=== PATIENT | male | born 1970 | race Caucasian/White ===

== ENCOUNTER → 2017-10-05 16:11 | Outpatient (CLI) | payer OTHER, SELFPAY ==
[2017-10-05 19:21] LABS: Amphetamine/Metha Screen,Urine Negative ng/mL (<1000); Barbiturates Screen,Urine Negative ng/mL (<200); Benzodiazepines Screen,Urine Positive ng/mL (200); Cannabinoid Screen,Urine Negative ng/mL (<50); Cocaine Screen,Urine Negative ng/g (<300); Methadone Screen,Urine Negative ng/mL (<300); Opiate Screen,Urine Negative ng/mL (<300); Phencyclidine Screen,Urine Negative ng/mL (<25)
== END ==
PROVIDERS: Visit Provider Emergency Medicine
DX: Z79.899 Other long term (current) drug therapy (principal)
CPT/HCPCS: 80305

== ENCOUNTER → 2017-11-27 12:25 | Outpatient (CLI) | payer OTHER, SELFPAY ==
[2017-11-27 15:02] LABS: Alanine Aminotransferase 24 U/L (12-78); Albumin Level 4.2 gm/dL (3.4-5.0); Alkaline Phosphatase 108 U/L (46-116); Anion Gap 9.6 mEq/L (5-15); Aspartate Amino Transferase 22 U/L (15-37); Bilirubin,Direct 0.2 mg/dL (0.0-0.2); Bilirubin,Total 0.8 mg/dL (0.2-1.0); Blood Urea Nitrogen 13 mg/dL (7-18); Carbon Dioxide 34 mmol/L (21.0-32.0); Chloride 104 mmol/L (98-107); Chol/HDL Ratio 3.2 (1-3.5); Cholesterol 135 mg/dL (140-200); Creatinine,Serum 0.94 mg/dL (0.70-1.30); Estimated Glomerular Filt Rate 86 ml/min (>60); GFR (African American) 104 ML/MIN (>60); Glucose 91 mg/dL (74-106); HDL Cholesterol 42 mg/dL (27-67); LDL Cholesterol 74 mg/dL (0-130); Potassium 4.6 mmoL/L (3.5-5.1); Sodium 143 mmol/L (136-145); Total Protein,Serum 7.6 gm/dL (6.4-8.2); Triglycerides 97 mg/dL (30-200); VLDL Cholesterol 19 mg/dL (0-40)
== END ==
PROVIDERS: Visit Provider Internal Medicine
DX: E78.5 Hyperlipidemia, unspecified (principal); I25.10 Atherosclerotic heart disease of native coronary artery without angina pectoris
CPT/HCPCS: 36415; 80048; 80061; 80076

== ENCOUNTER → 2017-12-31 13:10 | Outpatient (REF) | payer OTHER, SELFPAY ==
[2017-12-31 19:35] LABS: Amphetamine/Metha Screen,Urine Negative ng/mL (<1000); Barbiturates Screen,Urine Negative ng/mL (<200); Benzodiazepines Screen,Urine Positive ng/mL (200); Cannabinoid Screen,Urine Negative ng/mL (<50); Cocaine Screen,Urine Negative ng/g (<300); Methadone Screen,Urine Negative ng/mL (<300); Opiate Screen,Urine Negative ng/mL (<300); Phencyclidine Screen,Urine Negative ng/mL (<25)
== END ==
LOC: LAB 13:10
PROVIDERS: Visit Provider Emergency Medicine
DX: Z79.891 Long term (current) use of opiate analgesic (principal)
CPT/HCPCS: 80305

== ENCOUNTER → 2018-03-29 14:39 | Outpatient (REF) | payer OTHER, SELFPAY ==
[2018-03-29 18:50] LABS: Amphetamine/Metha Screen,Urine Negative ng/mL (<1000); Barbiturates Screen,Urine Negative ng/mL (<200); Benzodiazepines Screen,Urine Positive ng/mL (<200); Cannabinoid Screen,Urine Negative ng/mL (<50); Cocaine Screen,Urine Negative ng/mL (<300); Methadone Screen,Urine Negative ng/mL (<300); Opiate Screen,Urine Negative ng/mL (<300); Phencyclidine Screen,Urine Negative ng/mL (<25)
== END ==
LOC: LAB 14:39
PROVIDERS: Visit Provider Emergency Medicine
DX: Z79.899 Other long term (current) drug therapy (principal)
CPT/HCPCS: 80305

== ENCOUNTER → 2018-06-27 19:12 | Outpatient (CLI) | payer OTHER, SELFPAY ==
[2018-06-27 19:50] LABS: Amphetamine/Metha Screen,Urine Negative ng/mL (<1000); Barbiturates Screen,Urine Negative ng/mL (<200); Benzodiazepines Screen,Urine Positive ng/mL (<200); Cannabinoid Screen,Urine Negative ng/mL (<50); Cocaine Screen,Urine Negative ng/mL (<300); Methadone Screen,Urine Negative ng/mL (<300); Opiate Screen,Urine Negative ng/mL (<300); Phencyclidine Screen,Urine Negative ng/mL (<25)
== END ==
LOC: LAB 19:12 → LAB.DROPOF 06-28 09:04
PROVIDERS: PCP Emergency Medicine; Visit Provider Emergency Medicine
DX: Z79.899 Other long term (current) drug therapy (principal)
CPT/HCPCS: 80305

== ENCOUNTER → 2018-09-25 18:16 | Outpatient (CLI) | payer OTHER, SELFPAY ==
[2018-09-25 19:33] LABS: Amphetamine/Metha Screen,Urine Negative ng/mL (<1000); Barbiturates Screen,Urine Negative ng/mL (<200); Benzodiazepines Screen,Urine Positive ng/mL (<200); Cannabinoid Screen,Urine Negative ng/mL (<50); Cocaine Screen,Urine Negative ng/mL (<300); Methadone Screen,Urine Negative ng/mL (<300); Opiate Screen,Urine Negative ng/mL (<300); Phencyclidine Screen,Urine Negative ng/mL (<25)
== END ==
PROVIDERS: Visit Provider Emergency Medicine
DX: Z79.899 Other long term (current) drug therapy (principal)
CPT/HCPCS: 80305

== ENCOUNTER → 2018-12-20 14:00 | Outpatient (CLI) | payer OTHER, SELFPAY ==
[2018-12-20 15:13] LABS: Amphetamine/Metha Screen,Urine Negative ng/mL (<1000); Barbiturates Screen,Urine Negative ng/mL (<200); Benzodiazepines Screen,Urine Positive ng/mL (<200); Cannabinoid Screen,Urine Negative ng/mL (<50); Cocaine Screen,Urine Negative ng/mL (<300); Methadone Screen,Urine Negative ng/mL (<300); Opiate Screen,Urine Negative ng/mL (<300); Phencyclidine Screen,Urine Negative ng/mL (<25)
== END ==
PROVIDERS: Visit Provider Emergency Medicine
DX: Z79.899 Other long term (current) drug therapy (principal)
CPT/HCPCS: 80305

== ENCOUNTER → 2019-03-21 13:51 | Outpatient (CLI) | payer OTHER, SELFPAY ==
[2019-03-21 16:36] LABS: Amphetamine/Metha Screen,Urine Negative ng/mL (<1000); Barbiturates Screen,Urine Negative ng/mL (<200); Benzodiazepines Screen,Urine Positive ng/mL (<200); Cannabinoid Screen,Urine Negative ng/mL (<50); Cocaine Screen,Urine Negative ng/mL (<300); Methadone Screen,Urine Negative ng/mL (<300); Opiate Screen,Urine Negative ng/mL (<300); Phencyclidine Screen,Urine Negative ng/mL (<25)
== END ==
PROVIDERS: Visit Provider Emergency Medicine
DX: Z79.899 Other long term (current) drug therapy (principal)
CPT/HCPCS: 80305

== ENCOUNTER → 2019-11-11 09:32 | Outpatient (CLI) | payer OTHER, SELFPAY ==
[2019-11-11 10:13] LABS: Alanine Aminotransferase 19 U/L (12-78); Albumin Level 4.3 g/dl (3.5-5.0); Alkaline Phosphatase 84 U/L (38-126); Aspartate Amino Transferase 35 U/L (17-59); Bilirubin,Indirect 0.7 mg/dL (0.0-0.9); Bilirubin,Total 0.7 mg/dl (0.2-1.3); Bilirubin,Unconjugated 0.8 mg/dL (0.0-1.1); Chol/HDL Ratio 4.5 (1-3.5); Cholesterol 148 mg/dl (140-200); HDL Cholesterol 33 mg/dl (40-60); Total Protein,Serum 7.2 g/dl (6.3-8.2); Triglycerides 154 mg/dl (30-150); VLDL Cholesterol 31 mg/dL (0-40)
== END ==
PROVIDERS: Urology; Visit Provider Internal Medicine
DX: E78.49 Other hyperlipidemia (principal); I11.9 Hypertensive heart disease without heart failure; I25.10 Atherosclerotic heart disease of native coronary artery without angina pectoris; Z87.891 Personal history of nicotine dependence
CPT/HCPCS: 36415; 80061; 80076

== ENCOUNTER 2020-06-14 14:36 | Emergency (ER) | payer OTHER, SELFPAY ==
--- NOTE | 2020-06-14 14:32 | ECG_ITS ---
APPROVED REPORT Exam: Resting ECG HR:74 bpm ECG Measurements Heart Rate 74 AXES NC 130 P 59 QRSd 90 QRS 74 QT 374 T 48 QTc 415 Conclusion Normal sinus rhythm Normal ECG Electronically signed by : Melvin Pinedo, 06/18/2020 11:31:10
[2020-06-14 14:36] VITALS: BP 126/75; PULSE 80; RESP 17; TEMP 36.7; O2SAT 97; BMI 28.3
--- NOTE | 2020-06-14 14:39 | XR_ITS ---
PROCEDURE: XR CHEST 2V CLINICAL HISTORY: cp Chest pain COMPARISON: CR CXR1 CHEST-PORTABLE from 01/01/2013 CR CXR1 CHEST-PORTABLE from 01/07/2017 FINDINGS: There has been a prior CABG. Normal heart size. The lungs are clear without infiltrates, suspicious nodules, or pleural effusions. No acute bony abnormalities. IMPRESSION: No acute findings. Dictated by: Darinel Estevez MD 06/14/2020 15:01 Darinel Estevez MD in [place] 06/14/2020 15:01
[2020-06-14 14:41] VITALS: BP 126/75; PULSE 72; O2SAT 97
--- NOTE | 2020-06-14 14:45 | HMH.EDCP ---
ED Disposition Clinical Impression: Non-cardiac chest pain Disposition: Home, Self-Care Condition on Discharge: Good Additional Instructions: You were seen on an emergency basis. It is very important that you follow up with your primary care provider and/or specialist as we discussed within 2 days. All labs and imaging were obtained and interpreted here to rule out life threatening emergencies, but your final results should be reviewed by your primary doctor at your follow up appointment. Please return to the emergency department if any of your symptoms worsen, or if they do not improve as we discussed. - Critical Care Critical Care Time: No Attestation: On , the high probability of a clinically significant, sudden or life threatening deterioration of the following system(s) required my full and direct attention, intervention and personal management. The time I documented below is in addition to time spent performing reported procedures but includes the following listed in this critical care notation. Medical Decision Making - Medical Records Medical records reviewed: Yes: I reviewed the patient's medical records. - Maxwell Inquiry Pt receiving controlled substance: No Vital Signs: 06/14/20 14:36 06/14/20 14:41 06/14/20 15:06 Temperature 98.1 F Temperature Source Oral Pulse Rate [Right] 80 72 66 Respiratory Rate 17 Blood Pressure [Right Arm] 126/75 126/75 107/58 L Blood Pressure Mean [Right Arm] 92 92 74 Blood Pressure Source [Right Arm] Automatic Cuff Automatic Cuff Blood Pressure Position [Right Arm] Sitting Sitting 02 Sat by Pulse Oximetry 97 97 95 Oxygen Delivery Method Room Air Room Air 06/14/20 15:55 06/14/20 17:04 Temperature Temperature Source Pulse Rate [Right] 68 64 Respiratory Rate Blood Pressure [Right Arm] 102/58 L 95/53 L Blood Pressure Mean [Right Arm] 72 67 Blood Pressure Source [Right Arm] Automatic Cuff Automatic Cuff Blood Pressure Position [Right Arm] Sitting Sitting 02 Sat by Pulse Oximetry 96 97 Oxygen Delivery Method Room Air Room Air - Lab Data Lab Results 06/14/20 10:26: Lipase 47 06/14/20 14:39: WBC 9.3, RBC 5.38, Hgb 16.8, Hct 49.7, MCV 92.5, MCH 31.2, MCHC 33.7, RDW 13.4, Plt Count 234, MPV 8.2, Neut % (Auto) 63.1, Lymph % (Auto) 27.0, Kings % (Auto) 6.5, Eos % (Auto) 2.5, Baso % (Auto) 0.9, Neut # (Auto) 5.9, Lymph # (Auto) 2.5, Kings # (Auto) 0.6, Eos # (Auto) 0.2, Baso # (Auto) 0.1 06/14/20 14:39: Sodium 137, Potassium 4.0, Chloride 96 L, Carbon Dioxide 33 H, Anion Gap 12.0, BUN 6 L, Creatinine 1.10, Estimated Creat Clear 82, Estimated GFR 71, Est GFR ( Amer) 85, Glucose 99, Calcium 9.7, Troponin I < 0.01 06/14/20 17:01: Troponin I < 0.01 Result diagrams: 06/14/20 14:39 06/14/20 14:39 Orders (Tests/Meds): ED MEDICATIONS Generic Name Dose Route Start Last Admin Trade Name Freq PRN Reason Stop Dose Admin Sodium Chloride 8 ml 06/14/20 14:40 Sodium Chloride 0.9% 10ml Vial IV 07/14/20 14:39 NEEDED PRN dilute pepcid Discontinued Medications Generic Name Dose Route Start Last Admin Trade Name Freq PRN Reason Stop Dose Admin Belladonna Alkaloids 60 ml 06/14/20 14:44 06/14/20 14:48 Gi Cocktail 60ml Udc PO 06/14/20 14:45 60 ml ONCE ONE Administration Famotidine 20 mg 06/14/20 14:40 06/14/20 14:48 Famotidine 20mg/2ml Vial IV 06/14/20 14:41 20 mg ONCE ONE Administration ORDERS Category Date Time Status Troponin I Q3H Lab 06/14/20 20:45 Ordered Medical Decision Narrative: 50-year-old male presenting with chest pain. Nontoxic, afebrile, hemodynamically stable, atraumatic, oxygenating well on room air. EKG nonischemic and without arrhythmia. Initial and repeat troponins are less than 0.1 and flat. CBC and CMP are nonactionable. Lipase is within normal limits. Chest x-ray is negative for acute disease. Patient asymptomatic after GI cocktail and Pepcid. This is likely gastritis with d
[2020-06-14 14:49] LABS: Basophils # 0.1 K/mm3 (0-0.2); Basophils % 0.9 % (0.1-2.0); Eosinophils # 0.2 K/mm3 (0.0-0.4); Eosinophils % 2.5 % (0.1-12.0); Hematocrit 49.7 % (42.0-52.0); Hemoglobin 16.8 g/dL (14.1-18.0); Lymphocytes # 2.5 K/mm3 (0.7-4.5); Mean Corpuscular HGB Conc 33.7 g/dL (31.8-35.4); Mean Corpuscular Hemoglobin 31.2 pg (27.0-31.2); Mean Corpuscular Volume 92.5 fl (80-94); Mean Platelet Volume 8.2 fl (7.4-10.4); Monocytes # 0.6 K/mm3 (0.1-1.0); Monocytes % 6.5 % (1.7-9.3); Neutrophils # 5.9 K/mm3 (1.8-7.8); Neutrophils % 63.1 % (37.0-80.0); Platelet Count 234 K/mm3 (142-424); Red Blood Count 5.38 M/mm3 (4.60-6.20); Red Cell Distribution Width 13.4 % (11.5-17.5); White Blood Count 9.3 K/mm3 (4.8-10.8)
[2020-06-14 14:51] LABS: Chloride 96 mmol/L (98-107); Sodium 137 mmol/L (136-145)
[2020-06-14 14:54] LABS: Blood Urea Nitrogen 6 mg/dl (9-20); Creatinine Clearance Estimated 82 mL/min (50-200); Estimated Glomerular Filt Rate 71 ml/min (>60); GFR (African American) 85 ML/MIN (>60)
[2020-06-14 14:55] LABS: Calcium 9.7 mg/dl (8.4-10.2); Carbon Dioxide 33 mmol/L (22.0-30.0); Glucose 99 mg/dl (74-100)
[2020-06-14 15:06] VITALS: BP 107/58; PULSE 66; O2SAT 95
[2020-06-14 15:08] LABS: Troponin I < 0.01 ng/ml (0.00-0.034)
[2020-06-14 15:55] VITALS: BP 102/58; PULSE 68; O2SAT 96
[2020-06-14 16:16] LABS: Lipase 47 U/L (23-300)
[2020-06-14 17:04] VITALS: BP 95/53; PULSE 64; O2SAT 97
[2020-06-14 17:45] LABS: Troponin I < 0.01 ng/ml (0.00-0.034)
[2020-06-14 17:57] VITALS: BP 142/85; PULSE 87; RESP 18; TEMP 36.8; O2SAT 99
== END 2020-06-14 17:58 | disposition home or self-care (01) ==
PROVIDERS: Emergency Provider Physician Assistant; PCP Emergency Medicine
DX: R07.9 Chest pain, unspecified (principal); F41.8 Other specified anxiety disorders; E78.5 Hyperlipidemia, unspecified; I10 Essential (primary) hypertension; I25.2 Old myocardial infarction; Z79.899 Other long term (current) drug therapy
CPT/HCPCS: 71046; 80048; 83690; 84484; 85025; 93005; 96374; 99283

== ENCOUNTER → 2020-06-15 14:22 | Outpatient (CLI) | payer OTHER, SELFPAY ==
[2020-06-15 15:30] VITALS: PULSE 62; PULSE 66
== END ==
PROVIDERS: PCP Emergency Medicine; Visit Provider Emergency Medicine
DX: R06.02 Shortness of breath (principal)
CPT/HCPCS: 94060; 94618; 94640; 94727; 94729

== ENCOUNTER → 2020-06-29 17:06 | Outpatient (CLI) | payer OTHER, SELFPAY ==
[2020-06-29 17:45] LABS: Basophils % 0.5 % (0.1-2.0); Eosinophils # 0.2 K/mm3 (0.0-0.4); Eosinophils % 2.7 % (0.1-12.0); Hematocrit 47.3 % (42.0-52.0); Hemoglobin 16.1 g/dL (14.1-18.0); Lymphocytes # 1.8 K/mm3 (0.7-4.5); Mean Corpuscular HGB Conc 34.1 g/dL (31.8-35.4); Mean Corpuscular Hemoglobin 31.1 pg (27.0-31.2); Mean Platelet Volume 7.9 fl (7.4-10.4); Monocytes # 0.4 K/mm3 (0.1-1.0); Monocytes % 5.5 % (1.7-9.3); Neutrophils # 5.2 K/mm3 (1.8-7.8); Neutrophils % 68.3 % (37.0-80.0); Platelet Count 223 K/mm3 (142-424); Red Cell Distribution Width 13.6 % (11.5-17.5); White Blood Count 7.7 K/mm3 (4.8-10.8)
[2020-06-29 17:59] LABS: Chloride 99 mmol/L (98-107); Sodium 137 mmol/L (136-145)
[2020-06-29 18:03] LABS: Blood Urea Nitrogen 7 mg/dl (9-20); Calcium 9.2 mg/dl (8.4-10.2); Carbon Dioxide 32 mmol/L (22.0-30.0); Estimated Glomerular Filt Rate 89 ml/min (>60); GFR (African American) 108 ML/MIN (>60); Glucose 91 mg/dl (74-100)
[2020-06-29 18:29] LABS: Coronavirus 19 IgG Antibody Positive (Negative); Coronavirus 19 IgM Antibody Negative (Negative)
== END ==
PROVIDERS: PCP Emergency Medicine; Visit Provider Internal Medicine
DX: Z01.810 Encounter for preprocedural cardiovascular examination (principal)
CPT/HCPCS: 36415; 80048; 85025; 86328

== ENCOUNTER 2020-06-30 08:23 | Day surgery (SDC) | payer OTHER, SELFPAY ==
[2020-06-30] VITALS (16 sets, daily range): BP systolic 94–128; BP diastolic 53–67; PULSE 41–56; RESP 14–18; TEMP 36.4; O2SAT 91–100; BMI 27.6
--- NOTE | 2020-06-30 07:14 | IR_ITS ---
APPROVED REPORT Patient Location: Outpatient [facility] Graph[employer] Designer: GUS Lara RT (R) PROCEDURES Left heart catheterization Left ventriculogram Selective coronary angiogram Selective engagement of the saphenous vein graft to the circumflex artery FFR to the left main artery and LAD system Drug-eluting stent deployment to the left main artery, proximal LAD, and mid LAD INDICATION Angina pectoris, Coronary artery disease, History of coronary bypass surgery, Ischemic response to adenosine Informed consent was obtained prior to the procedure. COMPLICATIONS none Estimated Blood Loss: less than 10 mls TECHNIQUE 1% lidocaine used anesthetize the right groin the right femoral artery was accessed via the Salinger technique and a 5 Persian sheath was placed in the right femoral artery. A JL4 JR4 catheter were used to perform left heart catheterization left ventriculogram selective coronary geography as well as engagement of the saphenous vein graft to the circumflex artery. Following this a 6 Persian sheath was exchanged for the 5 Persian sheath. Therapeutic heparin was administered giving a therapeutic ACT. And AL 0.75 guide catheter AL 2 and eventually an AR 2 catheter were used for the diagnostic procedure. Specifically the AR-2 catheter was used to cannulate the saphenous vein graft to the circumflex artery which had an anterior takeoff. Following angiography of this vein graft the guide catheter was placed in the ascending aorta and aortic cusp and an FFR wire was normalized. The wire was then placed into the LAD and FFR was performed which produced an index of 0.66. Following this a 3.5 x 38 mm resolute barb stent was placed in the left main artery extending into the LAD and deployed at 20 paty. An additional 3 mm x 18 mm resolute barb stent was then placed distal to the stent and deployed at 20 paty. The balloon was brought back and deployed at 22 paty between the 2 stents. A 4 mm x 12 mm noncompliant balloon was then placed in the left main artery LAD 80 proximal LAD and deployed at 20,22 and 24 paty up and down the vessel. After achieving excellent angiographic results 600 mcg of intracoronary nitroglycerin was administered. PEGGY-3 flow was present before and after the procedure. The apparatus was removed the groin was reprepped closure changed sheath was removed good hemostasis was achieved using Perclose device patient was transferred to the postop holding area in stable condition ANGIOGRAPHIC RESULTS The left main artery Has a distal 50% stenosis which extends into the proximal LAD which has a 50 to 60% concentric stenosis. Distal to the stent in the mid LAD the remaining vessel is widely patent. 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 This vein graft has an anterior takeoff and was cannulated past using the AR-2 guide catheter IMPRESSION Coronary artery disease as described above Successful stenting of the left main artery proximal and mid LAD as described above reducing the stenosis to less than 10% Patent saphenous vein graft to circumflex artery which is best cannulated using an AR-2 catheter due to its anterior takeoff Normal ejection fraction Known occluded left internal mammary artery Normal left ventricular end-diastolic pressure PLAN 1. Dual antiplatelet therapy 2. Avoidance of tobacco prod
[2020-06-30 13:17] LABS: CATHL Activated Clotting Time 306 SEC (74-125)
[2020-06-30 13:19] LABS: CATHL Activated Clotting Time > 400 SEC (74-125)
--- NOTE | 2020-07-01 13:33 | HMH.PHACLD ---
Soren Coles has received discharge medication counseling on the following medications: CONTINUED MEDICATIONS: ASPIRIN, PLAVIX, SIMVASTATIN, BISOPROLOL, LISINOPRIL-HCTZ
== END 2020-06-30 14:06 | disposition home or self-care (01) ==
LOC: CATHLAB 08:24
PROVIDERS: PCP Emergency Medicine; Visit Provider Internal Medicine
DX: I25.118 Atherosclerotic heart disease of native coronary artery with other forms of angina pectoris (principal); E78.2 Mixed hyperlipidemia; I25.729 Atherosclerosis of autologous artery coronary artery bypass graft(s) with unspecified angina pectoris; I11.9 Hypertensive heart disease without heart failure; Z95.1 Presence of aortocoronary bypass graft; Z95.5 Presence of coronary angioplasty implant and graft; I25.2 Old myocardial infarction; Z79.01 Long term (current) use of anticoagulants; Z79.51 Long term (current) use of inhaled steroids; Z79.82 Long term (current) use of aspirin; Z79.899 Other long term (current) drug therapy; Z72.0 Tobacco use
CPT/HCPCS: 85347; 92928; 93458; 93571; 93572; 99152; 99153; C1725; C1760; C1769; C1876; C1894; C9600; J1644; Q9967

== ENCOUNTER → 2020-12-24 17:03 | Outpatient (CLI) | payer OTHER, SELFPAY ==
[2020-12-24 17:35] LABS: Amphetamine/Metha Screen,Urine Negative ng/ml (<1000); Benzodiazepines Screen,Urine Positive ng/ml (<200)
[2020-12-24 17:36] LABS: Barbiturates Screen,Urine Negative ng/ml (<200)
[2020-12-24 17:37] LABS: Cannabinoid Screen,Urine Negative ng/ml (<50); Cocaine Screen,Urine Negative ng/ml (<300)
[2020-12-24 17:39] LABS: Opiate Screen,Urine Negative ng/ml (<300)
[2020-12-24 17:40] LABS: Phencyclidine Screen,Urine Negative ng/ml (<25)
[2020-12-24 17:42] LABS: Methadone Screen,Urine Negative ng/ml (<300)
== END ==
PROVIDERS: Visit Provider Emergency Medicine
DX: F41.9 Anxiety disorder, unspecified (principal)
CPT/HCPCS: 80305

== ENCOUNTER → 2021-03-23 17:39 | Outpatient (CLI) | payer OTHER, SELFPAY ==
[2021-03-23 19:51] LABS: Amphetamine/Metha Screen,Urine Negative ng/ml (<1000)
[2021-03-23 19:56] LABS: Barbiturates Screen,Urine Negative ng/ml (<200); Benzodiazepines Screen,Urine Positive ng/ml (<200)
[2021-03-23 19:57] LABS: Cannabinoid Screen,Urine Negative ng/ml (<50)
[2021-03-23 19:58] LABS: Cocaine Screen,Urine Negative ng/ml (<300); Methadone Screen,Urine Negative ng/ml (<300)
[2021-03-23 19:59] LABS: Opiate Screen,Urine Negative ng/ml (<300); Phencyclidine Screen,Urine Negative ng/ml (<25)
== END ==
PROVIDERS: Visit Provider Emergency Medicine
DX: Z79.899 Other long term (current) drug therapy (principal)
CPT/HCPCS: 80305

== ENCOUNTER → 2021-06-24 15:01 | Outpatient (CLI) | payer OTHER, SELFPAY ==
[2021-06-24 16:11] LABS: Barbiturates Screen,Urine Negative ng/ml (<200); Benzodiazepines Screen,Urine Positive ng/ml (<200)
[2021-06-24 16:12] LABS: Amphetamine/Metha Screen,Urine Negative ng/ml (<1000); Methadone Screen,Urine Negative ng/ml (<300)
[2021-06-24 16:13] LABS: Cannabinoid Screen,Urine Negative ng/ml (<50)
[2021-06-24 16:14] LABS: Cocaine Screen,Urine Negative ng/ml (<300); Opiate Screen,Urine Negative ng/ml (<300)
[2021-06-24 16:15] LABS: Phencyclidine Screen,Urine Negative ng/ml (<25)
== END ==
PROVIDERS: Visit Provider Emergency Medicine
DX: Z79.899 Other long term (current) drug therapy (principal)
CPT/HCPCS: 80305

== ENCOUNTER → 2021-09-16 13:05 | Outpatient (CLI) | payer OTHER, SELFPAY ==
[2021-09-16 14:35] LABS: Amphetamine/Metha Screen,Urine Negative ng/ml (<1000); Barbiturates Screen,Urine Negative ng/ml (<200)
[2021-09-16 14:36] LABS: Benzodiazepines Screen,Urine Positive ng/ml (<200)
[2021-09-16 14:37] LABS: Cannabinoid Screen,Urine Negative ng/ml (<50); Cocaine Screen,Urine Negative ng/ml (<300)
[2021-09-16 14:38] LABS: Methadone Screen,Urine Negative ng/ml (<300); Opiate Screen,Urine Negative ng/ml (<300)
[2021-09-16 14:39] LABS: Phencyclidine Screen,Urine Negative ng/ml (<25)
== END ==
PROVIDERS: Visit Provider Emergency Medicine
DX: Z79.899 Other long term (current) drug therapy (principal)
CPT/HCPCS: 80305

== ENCOUNTER → 2021-09-30 13:24 | Outpatient (CLI) | payer OTHER, SELFPAY ==
--- NOTE | 2021-09-30 13:30 | MR_ITS ---
FINAL REPORT CLINICAL HISTORY: neck pain XYRS. FINDINGS: Multiplanar MR imaging of the cervical spine was performed without contrast. Motion on many of the images decreases exam sensitivity. On the sagittal T2-weighted images, disc degeneration is seen throughout. There is no evidence of fracture. The vertebral alignment is normal. The cervical spinal cord has an unremarkable appearance without evidence of mass, edema or syrinx. The cervicomedullary junction is normal. C2-3: A left paracentral disc protrusion mildly indents the thecal sac. There is mild left neural foraminal narrowing. C3-4: There are uncovertebral osteophytes. There is moderate right and severe left neural foraminal narrowing. C4-5: There is a disc osteophyte complex. There is moderate bilateral neural foraminal narrowing. There is mild central canal stenosis with an AP thecal sac diameter of 8 mm. C5-6: There is a disc osteophyte complex. There is moderate bilateral neural foraminal narrowing. There is mild central canal stenosis with an AP thecal sac diameter of 9 mm. C6-7: There is an annular bulge with a small central disc protrusion. There is mild bilateral neural foraminal narrowing. C7-T1: There are uncovertebral osteophytes. There is no significant canal stenosis or neural foraminal narrowing. IMPRESSION: Multilevel degenerative disc disease with areas of neural foraminal narrowing and central canal stenosis. Left paracentral disc protrusion at C2-C3 mildly indents the thecal sac. Small central disc protrusion at C6-7. Reviewed, Interpreted and Dictated by Matthias Irwin III, MD Transcribed by Sonny Lechuga Authenticated by Matthias Irwin III, MD on 09/30/2021 04:52:56 PM [facility]
--- NOTE | 2021-09-30 13:30 | MR_ITS ---
PROCEDURE INFORMATION: Exam: MR Lumbar Spine Without Contrast Exam date and time: 09/30/2021 1:30 PM Age: 51 years old Clinical indication: Low back pain TECHNIQUE: Imaging protocol: Multiplanar magnetic resonance images of the lumbar spine without intravenous contrast. COMPARISON: No relevant prior studies available. FINDINGS: Vertebrae: Unremarkable. Spinal cord: Normal signal. No cord compression. L1-L2: No significant disc disease. No significant spinal canal stenosis. No neural foraminal stenosis. L2-L3: No significant disc disease. No significant spinal canal stenosis. No neural foraminal stenosis. L3-L4: Mild left paracentral disc bulging resulting in contact upon the exiting left-sided nerve root. L4-L5: Disc desiccation. No significant disc disease. No significant spinal canal stenosis. No neural foraminal stenosis. L5-S1: Disc desiccation. No significant disc disease. No significant spinal canal stenosis. No neural foraminal stenosis. Soft tissues: Unremarkable. IMPRESSION: No disc herniation. No free fragment. Mild degenerative changes at L3-L4.
--- NOTE | 2021-09-30 13:37 | XR_ITS ---
FINAL REPORT CLINICAL HISTORY: R/O FOREIGN BODY FOR MRI. prior hx metal in lt eye. patient is waiting for clearance for their mri. FINDINGS: ORBITS Look up and looking down views of the skull were performed. No intraorbital foreign body is identified. No fracture is seen. IMPRESSION: No intra orbital foreign body. Reviewed, Interpreted and Dictated by Matthias Irwin III, MD Transcribed by Sonny Lechuga Authenticated by Matthias Irwin III, MD on 09/30/2021 02:06:54 PM [facility]
== END ==
PROVIDERS: PCP Emergency Medicine; Visit Provider Emergency Medicine
DX: M54.2 Cervicalgia (principal); M54.9 Dorsalgia, unspecified; H05.53 Retained (old) foreign body following penetrating wound of bilateral orbits
CPT/HCPCS: 70200; 72141; 72148; 76376

== ENCOUNTER 2021-10-17 15:55 | Emergency (ER) | payer OTHER, SELFPAY ==
--- NOTE | 2021-10-17 | ECG_ITS ---
APPROVED REPORT Exam: Resting ECG HR:53 bpm ECG Measurements Heart Rate 53 AXES LA 139 P 69 QRSd 93 QRS 83 QT 410 T 48 QTc 393 Conclusion SINUS BRADYCARDIA BORDERLINE ECG UNCONFIRMED REPORT Electronically signed by : Huy Petersen MD 10/21/2021 16:12:23
[2021-10-17 15:55] VITALS: BP 114/70; PULSE 56; RESP 12; TEMP 36.5; O2SAT 100; BMI 23.6
--- NOTE | 2021-10-17 15:59 | XR_ITS ---
PROCEDURE INFORMATION: Exam: XR Chest Exam date and time: 10/17/2021 3:59 PM Age: 51 years old Clinical indication: Dyspnea; Additional info: Chest pain, dyspnea TECHNIQUE: Imaging protocol: XR of the chest. Views: 1 view. Portable AP upright exam 4:11 p.m. COMPARISON: CR XR CHEST 2V 06/14/2020 2:43 PM FINDINGS: Lungs: No acute pulmonary findings. No pulmonary consolidation. Lung volumes within normal limits. A chronic calcified lateral right basilar granuloma again noted. Pulmonary vessels do not appear congested. Pleural spaces: Unremarkable. No significant pleural effusion. No pneumothorax. Heart/Mediastinum: The cardiac silhouette is normal. Mediastinal surgical changes, post CABG. Overlying shelter monitor electrodes. Bones/joints: Sternotomy wires. Mild spinal degenerative changes. IMPRESSION: 1. No acute findings. 2. Non emergency and chronic findings, as above.
[2021-10-17 16:16] LABS: Basophils # 0.3 K/mm3 (0-0.2); Basophils % 5.4 % (0.1-2.0); Eosinophils # 0.2 K/mm3 (0.0-0.4); Eosinophils % 3.4 % (0.1-12.0); Hematocrit 45.9 % (42.0-52.0); Hemoglobin 15.9 g/dL (14.1-18.0); Lymphocytes # 1.7 K/mm3 (0.7-4.5); Lymphocytes % 30.3 % (10-50); Mean Corpuscular HGB Conc 34.7 g/dL (31.8-35.4); Mean Corpuscular Hemoglobin 32.3 pg (27.0-31.2); Mean Corpuscular Volume 93.1 fl (80-94); Monocytes # 0.6 K/mm3 (0.1-1.0); Monocytes % 10.1 % (1.7-9.3); Neutrophils # 3.2 K/mm3 (1.8-7.8); Neutrophils % 56.3 % (37.0-80.0); Platelet Count 190 K/mm3 (142-424); Red Blood Count 4.93 M/mm3 (4.60-6.20); Red Cell Distribution Width 14.1 % (11.5-17.5); White Blood Count 5.6 K/mm3 (4.8-10.8)
[2021-10-17 16:28] LABS: Alanine Aminotransferase 28 U/L (12-78); Albumin Level 4.5 g/dl (3.5-5.0); Albumin/Globulin Ratio 1.6 (1.1-1.8); Alkaline Phosphatase 72 U/L (38-126); Anion Gap 12.4 mEq/L (5-15); Aspartate Amino Transferase 52 U/L (17-59); Bilirubin,Total 1.6 mg/dl (0.2-1.3); Blood Urea Nitrogen 13 mg/dl (9-20); Calcium 8.8 mg/dl (8.4-10.2); Carbon Dioxide 30 mmol/L (22.0-30.0); Chloride 97 mmol/L (98-107); Creatinine Clearance Estimated 89 mL/min (50-200); Estimated Glomerular Filt Rate 78 ml/min (>60); GFR (African American) 95 ML/MIN (>60); Globulin 2.8 g/dL (1.3-3.2); Glucose 94 mg/dl (74-100); Potassium 4.4 mmoL/L (3.5-5.1); Sodium 135 mmol/L (136-145); Total Protein,Serum 7.3 g/dl (6.3-8.2)
[2021-10-17 16:30] VITALS: BP 102/55; PULSE 52; RESP 18; O2SAT 98
[2021-10-17 16:33] LABS: D-Dimer 0.89 ug/mL (0.0-0.5)
[2021-10-17 16:41] LABS: Troponin I < 0.01 ng/ml (0.00-0.034)
[2021-10-17 17:00] VITALS: BP 99/52; PULSE 52; RESP 18; O2SAT 99
[2021-10-17 17:30] VITALS: BP 95/57; PULSE 54; RESP 20; O2SAT 99
--- NOTE | 2021-10-17 17:56 | PC.NURSE ---
patient up to bathroom. No other needs at this time. Updated on POC
--- NOTE | 2021-10-17 19:22 | HMH.EDCP ---
ED Disposition Clinical Impression: Chest pain, Viral illness Disposition: Home, Self-Care Condition on Discharge: Good Instructions: DI for Atypical Chest Pain, DI for Viral Syndrome Additional Instructions: Please return to your primary care physician in 2-3 days for further management. You have been swabbed for COVID and follow up with results tomorrow. Continue to drink plenty of water and eat 3 balanced meals. Please return to the emergency department for worsening symptoms such as chest pain, difficulty breathing, or any other concerning symptoms. Referrals: Tony Regan MD [Primary Care Provider] - Time of Disposition: 19:50 - Critical Care Critical Care Time: No Attestation: On 10/17/21, the high probability of a clinically significant, sudden or life threatening deterioration of the following system(s) required my full and direct attention, intervention and personal management. The time I documented below is in addition to time spent performing reported procedures but includes the following listed in this critical care notation. Medical Decision Making - Medical Records Medical records reviewed: Yes: I reviewed the patient's medical records. - Maxwell Inquiry Pt receiving controlled substance: No Vital Signs: 10/17/21 15:55 10/17/21 16:30 10/17/21 17:00 Temperature 97.7 F Temperature Source Oral Pulse Rate 52 L 52 L Pulse Rate [Left Radial] 56 L Respiratory Rate 12 18 18 Blood Pressure 102/55 L 99/52 L Blood Pressure [Right Arm] 114/70 Blood Pressure Mean 72 63 Blood Pressure Mean [Right Arm] 84 Blood Pressure Source Blood Pressure Source [Right Arm] Automatic Cuff Blood Pressure Position Blood Pressure Position [Right Arm] Sitting 02 Sat by Pulse Oximetry 100 98 99 Oxygen Delivery Method Room Air 10/17/21 17:30 10/17/21 19:34 Temperature 98.0 F Temperature Source Oral Pulse Rate 54 L 58 L Pulse Rate [Left Radial] Respiratory Rate 20 12 Blood Pressure 95/57 L 114/79 Blood Pressure [Right Arm] Blood Pressure Mean 66 Blood Pressure Mean [Right Arm] Blood Pressure Source Automatic Cuff Blood Pressure Source [Right Arm] Blood Pressure Position Supine Blood Pressure Position [Right Arm] 02 Sat by Pulse Oximetry 99 Oxygen Delivery Method Room Air - Lab Data Lab results reviewed: Yes: I reviewed the patient's lab results. Lab Results 10/17/21 16:00: WBC 5.6, RBC 4.93, Hgb 15.9, Hct 45.9, MCV 93.1, MCH 32.3 H, MCHC 34.7, RDW 14.1, Plt Count 190, MPV 9.0, Neut % (Auto) 56.3, Lymph % (Auto) 30.3, Wallace % (Auto) 10.1 H, Eos % (Auto) 3.4, Baso % (Auto) 5.4 H, Neut # (Auto) 3.2, Lymph # (Auto) 1.7, Wallace # (Auto) 0.6, Eos # (Auto) 0.2, Baso # (Auto) 0.3 H 10/17/21 16:00: Sodium 135 L, Potassium 4.4, Chloride 97 L, Carbon Dioxide 30, Anion Gap 12.4, BUN 13, Creatinine 1.00, Estimated Creat Clear 89, Estimated GFR 78, Est GFR ( Amer) 95, Glucose 94, Calcium 8.8, Total Bilirubin 1.6 H, AST 52, ALT 28, Alkaline Phosphatase 72, Troponin I < 0.01, Total Protein 7.3, Albumin 4.5, Globulin 2.8, Albumin/Globulin Ratio 1.6 10/17/21 16:00: D-Dimer 0.89 H Result diagrams: 10/17/21 16:00 10/17/21 16:00 Orders (Tests/Meds): ORDERS Category Date Time Status Covid-19 Nasal PCR ([facility]) Routine Lab 10/17/21 15:59 Received Medical Decision Narrative: Sanket Al presents w/ multiple complainta including headache, chest pain, dyspnea, abdominal pain for 2 d and generalized weakness. Patient is afebrile and hemodynamically stable on arrival. Physical exam: patient is well appearing, benign exam. Differentials to consider include viral mediated illness including covid 19, MN/CAD, low suspicion for PE, pneumonia. No focal neurological deficits on exam low suspicion for acute intracranial process. Basic labs, Trope, Dimer are obtained results non actionable. Dimer .89 given years critieria will not investigate further. Bedside CXR no acute findings. Beside ECG
[2021-10-17 19:34] VITALS: BP 114/79; PULSE 58; RESP 12; TEMP 36.7; O2SAT 99
== END 2021-10-17 19:38 | disposition home or self-care (01) ==
PROVIDERS: Emergency Provider Student in an Organized Health Care Education/Training Program; PCP Emergency Medicine
DX: R07.9 Chest pain, unspecified (principal); B34.9 Viral infection, unspecified; F17.210 Nicotine dependence, cigarettes, uncomplicated
CPT/HCPCS: 71045; 80053; 84484; 85025; 85378; 93005; 99283; C9803; U0003; U0005

== ENCOUNTER → 2021-10-27 09:57 | Outpatient (POV) | payer OTHER, SELFPAY ==
[2021-10-27 10:33] VITALS: BP 150/75; PULSE 74; RESP 20; TEMP 36.2; O2SAT 98; BMI 25.7
--- NOTE | 2021-10-27 14:36 | HMH.PMCON ---
Assessment and Plan (1) Cervical stenosis of spine Status: Acute Category: Medical Code(s): M48.02 - Spinal stenosis, cervical region (2) Neural foraminal stenosis of cervical spine Status: Acute Category: Medical Code(s): M48.02 - Spinal stenosis, cervical region (3) DDD (degenerative disc disease), cervical Status: Acute Category: Medical Code(s): M50.30 - Other cervical disc degeneration, unspecified cervical region (4) DDD (degenerative disc disease), lumbar Status: Acute Category: Medical Code(s): M51.36 - Other intervertebral disc degeneration, lumbar region (5) Myofascial pain syndrome, cervical Status: Acute Category: Medical Code(s): M79.18 - Myalgia, other site (6) Occipital neuralgia Status: Acute Category: Medical Code(s): M54.81 - Occipital neuralgia - Assessment and plan all Dx Assessment and Plan for all problems:: Ordering Physician: Tony Regan MD Date of Service: 09/30/21 Procedure(s): MR cervical spine wo con Accession Number(s): [id number] cc: Tony Regan MD; Matthias Irwin MD~ FINAL REPORT CLINICAL HISTORY: neck pain XYRS. FINDINGS: Multiplanar MR imaging of the cervical spine was performed without contrast. Motion on many of the images decreases exam sensitivity. On the sagittal T2-weighted images, disc degeneration is seen throughout. There is no evidence of fracture. The vertebral alignment is normal. The cervical spinal cord has an unremarkable appearance without evidence of mass, edema or syrinx. The cervicomedullary junction is normal. C2-3: A left paracentral disc protrusion mildly indents the thecal sac. There is mild left neural foraminal narrowing. C3-4: There are uncovertebral osteophytes. There is moderate right and severe left neural foraminal narrowing. C4-5: There is a disc osteophyte complex. There is moderate bilateral neural foraminal narrowing. There is mild central canal stenosis with an AP thecal sac diameter of 8 mm. C5-6: There is a disc osteophyte complex. There is moderate bilateral neural foraminal narrowing. There is mild central canal stenosis with an AP thecal sac diameter of 9 mm. C6-7: There is an annular bulge with a small central disc protrusion. There is mild bilateral neural foraminal narrowing. C7-T1: There are uncovertebral osteophytes. There is no significant canal stenosis or neural foraminal narrowing. IMPRESSION: Multilevel degenerative disc disease with areas of neural foraminal narrowing and central canal stenosis. Left paracentral disc protrusion at C2-C3 mildly indents the thecal sac. Small central disc protrusion at C6-7. Reviewed, Interpreted and Dictated by Matthias Irwin III, MD Transcribed by Sonny Lechuga Authenticated by Matthias Irwin III, MD on 09/30/2021 04:52:56 PM [facility] PROCEDURE INFORMATION: Exam: MR Lumbar Spine Without Contrast Exam date and time: 09/30/2021 1:30 PM Age: 51 years old Clinical indication: Low back pain TECHNIQUE: Imaging protocol: Multiplanar magnetic resonance images of the lumbar spine without intravenous contrast. COMPARISON: No relevant prior studies available. FINDINGS: Vertebrae: Unremarkable. Spinal cord: Normal signal. No cord compression. L1-L2: No significant disc disease. No significant spinal canal stenosis. No neural foraminal stenosis. L2-L3: No significant disc disease. No significant spinal canal stenosis. No neural foraminal stenosis. L3-L4: Mild left paracentral disc bulging resulting in contact upon the exiting left-sided nerve root. L4-L5: Disc desiccation. No significant disc disease. No significant spinal canal stenosis. No neural foraminal stenosis. L5-S1: Disc desiccation. No significant disc disease. No significant spinal canal stenosis. No neural foraminal stenosis. Soft tissues: Unremarkable. IMPRESSION: No disc herniation. No free fragment
== END ==
PROVIDERS: Visit Provider Student in an Organized Health Care Education/Training Program
DX: M48.02 Spinal stenosis, cervical region (principal); M50.30 Other cervical disc degeneration, unspecified cervical region; M51.36 Other intervertebral disc degeneration, lumbar region; M79.18 Myalgia, other site; M54.81 Occipital neuralgia
CPT/HCPCS: 99202; G0463

== ENCOUNTER 2021-11-04 13:32 | Day surgery (SDC) | payer OTHER, SELFPAY ==
[2021-11-04 13:37] VITALS: BP 120/68; BP 121/69; BP 129/56; PULSE 66; PULSE 68; PULSE 78; RESP 18; RESP 20; TEMP 36.7; O2SAT 98; O2SAT 99; BMI 25.7
--- NOTE | 2021-11-04 13:50 | HMH.PMPROC ---
- Procedure Date: 11/04/21 Time: 13:50 Anesthesiologist:: Tavo Chairez MD Complications:: None Pre-procedure Diagnosis:: Neck pain myofascial in origin Post-procedure Diagnosis:: Same Indications for Procedure:: Patient is a pleasant 51-year-old white male who been treating for neck pain which is myofascial in origin. He has trigger points and myofascial pain throughout the cervical paraspinous muscles and upper trapezius muscles. Trigger points are identified. We will plan on bilateral trigger point injections to cervical paraspinous muscles and upper trapezius muscles today. Procedure Details:: Trigger point injections x8 to bilateral cervical paraspinous muscles and upper trapezius muscles Informed consent was obtained risk and benefits of the procedure were explained to the patient. Patient was taken the procedure room. The neck and shoulders were prepped using ChloraPrep. 25-gauge needle was used to inject 3 mL bupivacaine 0.25% and Depo-Medrol 10 mg into trigger points throughout the bilateral cervical paraspinous muscles and upper trapezius muscles. Total of 8 trigger points were injected using a total of 80 mg Depo-Medrol. Patient tolerated the procedure well with no complications. Plan and Disposition:: We will follow-up with him in 2 weeks. Will reevaluate his symptoms at that time.
[2021-11-04 14:03] VITALS: BP 114/71; PULSE 67; RESP 20; O2SAT 100
== END 2021-11-04 14:04 | disposition home or self-care (01) ==
LOC: SC.PAINP 13:32
PROVIDERS: PCP Emergency Medicine; Visit Provider Anesthesiology
DX: M79.12 Myalgia of auxiliary muscles, head and neck (principal); F41.9 Anxiety disorder, unspecified; I25.10 Atherosclerotic heart disease of native coronary artery without angina pectoris; F32.A Depression, unspecified; E78.5 Hyperlipidemia, unspecified; I10 Essential (primary) hypertension; I25.2 Old myocardial infarction; M19.90 Unspecified osteoarthritis, unspecified site; Z72.0 Tobacco use
CPT/HCPCS: 20553; J1040

== ENCOUNTER → 2021-12-09 08:41 | Outpatient (CLI) | payer OTHER, SELFPAY ==
[2021-12-09 15:37] LABS: Barbiturates Screen,Urine Negative ng/ml (<200); Benzodiazepines Screen,Urine Positive ng/ml (<200)
[2021-12-09 15:38] LABS: Amphetamine/Metha Screen,Urine Negative ng/ml (<1000)
[2021-12-09 15:39] LABS: Cannabinoid Screen,Urine Negative ng/ml (<50); Methadone Screen,Urine Negative ng/ml (<300)
[2021-12-09 15:40] LABS: Cocaine Screen,Urine Negative ng/ml (<300)
[2021-12-09 15:41] LABS: Opiate Screen,Urine Positive ng/ml (<300)
[2021-12-09 15:42] LABS: Phencyclidine Screen,Urine Negative ng/ml (<25)
== END ==
PROVIDERS: PCP Emergency Medicine; Visit Provider Emergency Medicine
DX: G62.9 Polyneuropathy, unspecified (principal)
CPT/HCPCS: 80305

== ENCOUNTER → 2022-01-19 11:07 | Outpatient (CLI) | payer OTHER, SELFPAY ==
--- NOTE | 2022-01-19 11:19 | XR_ITS ---
FINAL REPORT CLINICAL HISTORY: dyspnea COMPARISON: October 17, 2021 FINDINGS: Two views of the chest were obtained. The heart size and pulmonary vascularity are within normal limits. There are postoperative changes from prior median sternotomy. No acute pulmonary abnormality is identified. There is no pneumothorax. The bony thorax is intact. IMPRESSION: No active cardiopulmonary disease. Reviewed, Interpreted and Dictated by Matthias Irwin III, MD Transcribed by Liberty Paml Authenticated and [facility]
[2022-01-19 12:09] LABS: Basophils # 0.1 K/mm3 (0-0.2); Basophils % 1.5 % (0.1-2.0); Eosinophils # 0.2 K/mm3 (0.0-0.4); Eosinophils % 2.1 % (0.1-12.0); Hemoglobin 14.8 g/dL (14.1-18.0); Lymphocytes # 1.7 K/mm3 (0.7-4.5); Lymphocytes % 21.1 % (10-50); Mean Corpuscular HGB Conc 33.6 g/dL (31.8-35.4); Mean Corpuscular Hemoglobin 32.1 pg (27.0-31.2); Mean Corpuscular Volume 95.5 fl (80-94); Mean Platelet Volume 9.6 fl (7.4-10.4); Monocytes # 0.7 K/mm3 (0.1-1.0); Monocytes % 8.7 % (1.7-9.3); Neutrophils # 5.5 K/mm3 (1.8-7.8); Neutrophils % 66.6 % (37.0-80.0); Platelet Count 219 K/mm3 (142-424); Red Blood Count 4.61 M/mm3 (4.60-6.20); Red Cell Distribution Width 13.2 % (11.5-17.5); White Blood Count 8.2 K/mm3 (4.8-10.8)
[2022-01-19 12:32] LABS: Alanine Aminotransferase 16 U/L (12-78); Albumin Level 4.3 g/dl (3.5-5.0); Alkaline Phosphatase 89 U/L (38-126); Anion Gap 12.4 mEq/L (5-15); Aspartate Amino Transferase 31 U/L (17-59); Bilirubin,Indirect 2.1 mg/dL (0.0-0.9); Bilirubin,Total 2.1 mg/dl (0.2-1.3); Bilirubin,Unconjugated 2.1 mg/dL (0.0-1.1); Blood Urea Nitrogen 17 mg/dl (9-20); Calcium 9.4 mg/dl (8.4-10.2); Carbon Dioxide 32 mmol/L (22.0-30.0); Chloride 97 mmol/L (98-107); Chol/HDL Ratio 5.3 (1-3.5); Cholesterol 139 mg/dl (140-200); Estimated Glomerular Filt Rate 70 ml/min (>60); GFR (African American) 85 ML/MIN (>60); Glucose 85 mg/dl (74-100); HDL Cholesterol 26 mg/dl (40-60); Magnesium 1.9 mg/dl (1.6-2.3); Potassium 4.4 mmoL/L (3.5-5.1); Sodium 137 mmol/L (136-145); Triglycerides 105 mg/dl (30-150); VLDL Cholesterol 21 mg/dL (0-40)
[2022-01-19 12:43] LABS: Direct LDL Cholesterol 77.41 mg/dL (100-129)
[2022-01-19 12:48] LABS: Free T4 (Free Thyroxine) 1.22 ng/dl (0.78-2.19)
[2022-01-19 13:03] LABS: Thyroid Stimulating Hormone 3.43 uIU/mL (0.465-4.68)
== END ==
PROVIDERS: PCP Emergency Medicine; Visit Provider Nurse Practitioner
DX: R06.00 Dyspnea, unspecified (principal); I20.9 Angina pectoris, unspecified; I11.9 Hypertensive heart disease without heart failure; E78.2 Mixed hyperlipidemia; F17.200 Nicotine dependence, unspecified, uncomplicated; Z95.1 Presence of aortocoronary bypass graft; Z95.5 Presence of coronary angioplasty implant and graft
CPT/HCPCS: 36415; 71046; 80048; 80061; 80076; 83735; 84439; 84443; 85025

== ENCOUNTER → 2022-03-31 14:40 | Outpatient (CLI) | payer OTHER, SELFPAY ==
[2022-03-31 17:33] LABS: Amphetamine/Metha Screen,Urine Negative ng/ml (<1000); Barbiturates Screen,Urine Negative ng/ml (<200)
[2022-03-31 17:34] LABS: Benzodiazepines Screen,Urine Positive ng/ml (<200); Cannabinoid Screen,Urine Negative ng/ml (<50)
[2022-03-31 17:35] LABS: Cocaine Screen,Urine Negative ng/ml (<300)
[2022-03-31 17:36] LABS: Methadone Screen,Urine Negative ng/ml (<300); Opiate Screen,Urine Positive ng/ml (<300)
[2022-03-31 17:37] LABS: Phencyclidine Screen,Urine Negative ng/ml (<25)
== END ==
PROVIDERS: PCP Emergency Medicine; Visit Provider Emergency Medicine
DX: Z79.899 Other long term (current) drug therapy (principal)
CPT/HCPCS: 80305

== ENCOUNTER 2022-06-15 18:24 | Inpatient (IN) | payer OTHER, SELFPAY ==
[2022-06-15] VITALS (14 sets, daily range): BP systolic 97–128; BP diastolic 46–76; PULSE 40–67; RESP 14–20; TEMP 36.4–36.8; O2SAT 96–100; BMI 27.4; BMI 25.0
--- NOTE | 2022-06-15 | IR_ITS ---
APPROVED REPORT Patient Location: Emergent Ship Engineer: GUS Small RT (R) PROCEDURES Left heart catheterization Left ventriculogram Selective coronary angiogram INDICATION ST elevation myocardial infarction, Profound bradycardia with possible junctional rhythm Informed consent was obtained prior to the procedure. COMPLICATIONS None Estimated Blood Loss: Less than 10 mls TECHNIQUE One percent lidocaine used to anesthetize the right anterior aspect of the wrist. The right radial artery was accessed via the Seldinger technique. A 6 Japanese sheath was placed in the right radial artery. 2.5 mg of verapamil, 800 mcg of nitroglycerin, 1mg Lidocaine and 5000 U Heparin were given through the arterial sheath. The papa catheter was also used to perform left heart catheterization, left ventriculogram and selective coronary angiogram. At the end of the procedure the sheath was removed good hemostasis was achieved using Traclet band, patient was transferred to the postop holding area in stable condition. ANGIOGRAPHIC RESULTS The left main artery Has a stent in the ostial segment which is widely patent and extends into the proximal mid LAD which is also widely patent free of in-stent restenosis. The left anterior descending artery Is widely patent originating from the left main artery and is widely patent with inline flow into the apex The circumflex artery Ostially occluded and fills entirely via right to left collaterals The right coronary artery Is a dominant vessel and has mild atheromatous plaque where the distal PDA and posterior lateral branch sent collaterals to a nondominant circumflex artery The [place] ventriculogram reveals Dilated ventricle anterior wall hypokinesis estimated ejection fraction 25 to 30% The left ventricular end-diastolic pressure 10 to 15 mmHg IMPRESSION Patent coronary artery disease as described above ST elevation in the anterior leads 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 Continue dual antiplatelet therapy 2. Patient will require AICD placement due to profoundly decreased ejection fraction. Because it is anticipated patient will RV pace it is recommended he proceed with BiV pacemaker with cardiac resynchronization 3. Obtain echocardiogram in the morning to better evaluate ejection fraction 4. Continue medical management for systolic congestive heart failure and ischemic heart disease 5. Consideration will be made in the morning to possibly proceed with BOSS DYER-D. Although patient has a narrow QRS complex it is anticipated he will likely RV pace based on what appears to be a junctional escape rhythm with possible third-degree heart block. Patient has a short AR interval. Old EKGs will also be analyzed to determine if the short AR interval previously existed. My suspicion is this short AR interval actually represents sinus bradycardia with third-degree heart block and possible junctional escape. Further EKG analysis will be made tomorrow prior to considering BOSS DYER-D. If patient's AR interval was previously short then he would only be a candidate for AICD placement providing he has been compliant with standard systolic heart failure medications Electronically signed by : Brain Worthy MD 06/15/2022 19:46:05
--- NOTE | 2022-06-15 18:19 | ECG_ITS ---
APPROVED REPORT Exam: Resting ECG HR:57 bpm ECG Measurements Heart Rate 57 AXES NE 136 P 78 QRSd 115 QRS 107 QT 446 T 60 QTc 441 Conclusion SINUS BRADYCARDIA RIGHT AXIS DEVIATION [QRS AXIS > 100] MODERATE INTRAVENTRICULAR CONDUCTION DELAY [110+ ms QRS DURATION] ABNORMAL ECG UNCONFIRMED REPORT Electronically signed by : Huy Petersen MD 06/18/2022 21:23:44
--- NOTE | 2022-06-15 18:34 | ECG_ITS ---
APPROVED REPORT Exam: Resting ECG HR:53 bpm ECG Measurements Heart Rate 53 AXES WV 145 P 80 QRSd 129 QRS 118 QT 476 T 27 QTc 458 Conclusion SINUS BRADYCARDIA LEFT POSTERIOR FASCICULAR BLOCK [QRS AXIS > 109, INFERIOR Q] ABNORMAL ECG UNCONFIRMED REPORT Electronically signed by : Huy Petersen MD 06/18/2022 21:23:22
--- NOTE | 2022-06-15 18:36 | ECG_ITS ---
APPROVED REPORT Exam: Resting ECG HR:53 bpm ECG Measurements Heart Rate 53 AXES MS 138 P 80 QRSd 121 QRS 91 QT 460 T 63 QTc 443 Conclusion SINUS BRADYCARDIA INDETERMINATE AXIS MODERATE INTRAVENTRICULAR CONDUCTION DELAY [110+ ms QRS DURATION] BORDERLINE ECG UNCONFIRMED REPORT Electronically signed by : Huy Petersen MD 06/18/2022 21:23:17
--- NOTE | 2022-06-15 18:37 | ECG_ITS ---
APPROVED REPORT Exam: Resting ECG HR:57 bpm ECG Measurements Heart Rate 57 AXES WI 138 P 82 QRSd 110 QRS -9 QT 450 T 79 QTc 444 Conclusion SINUS BRADYCARDIA INDETERMINATE AXIS BORDERLINE ECG UNCONFIRMED REPORT Electronically signed by : Huy Petersen MD 06/18/2022 21:23:03
--- NOTE | 2022-06-15 18:38 | HMH.EDGENADL ---
Discharge Plan Disposition Patient Disposition: Admitted As Inpatient Condition: Serious Clinical Impressions Clinical Impression: ST elevation (STEMI) myocardial infarction Discharge ED Provider: Mukesh Zapata General Adult HPI General Chief complaint: Chest Pain Stated complaint: cp Time Seen by Provider: 06/15/22 18:24 History of Present Illness HPI narrative: 40-minute history of severe pain in his lower sternal area and left parasternal area. No specific radiation, but says his arms and legs hurt and feel tired. Slight shortness of breath. Denies nausea or diaphoresis. He took 3 nitroglycerin without relief. Prior history of coronary artery disease with coronary bypass surgery and 9 stents. States he has been compliant with his medication except for missing his dose of 81 mg aspirin today. Related Data Previous Rx's Medication Instructions Recorded aspirin 81 mg tablet,delayed 81 mg PO DAILY [facility] health #90 12/09/21 release tabs diclofenac sodium 1 % topical gel 2 g topical QID Pain #100 grams 12/09/21 ranolazine 500 mg tablet,extended 500 mg PO BID #60 tabs 01/19/22 release,12 hr (Ranexa) alprazolam 1 mg tablet See Rx Instructions .Route 05/29/22 .COMPLEX PRN anxiety #150 tabs gabapentin 800 mg tablet 800 mg PO TID nerve pain #90 tabs 05/29/22 hydrocodone 7.5 mg-acetaminophen 1 tab PO TID Pain #90 tabs 05/29/22 325 mg tablet bisoprolol fumarate 5 mg tablet See Rx Instructions .Route 06/12/22 .COMPLEX #90 tabs budesonide-formoterol HFA 80 See Rx Instructions .Route 06/12/22 mcg-4.5 mcg/actuation aerosol .COMPLEX #10.2 grams inhaler (Symbicort) bupropion HCl 150 mg 24 hr tablet, See Rx Instructions .Route 06/12/22 extended release .COMPLEX #90 tabs clopidogrel 75 mg tablet See Rx Instructions .Route 06/12/22 .COMPLEX #90 tabs isosorbide mononitrate 60 mg See Rx Instructions .Route 06/12/22 tablet,extended release 24 hr .COMPLEX #90 tabs lisinopril 10 See Rx Instructions .Route 06/12/22 mg-hydrochlorothiazide 12.5 mg .COMPLEX #90 tabs tablet nitroglycerin 0.4 mg sublingual See Rx Instructions .Route 06/12/22 tablet .COMPLEX #25 tabs pantoprazole 40 mg tablet,delayed See Rx Instructions .Route 06/12/22 release .COMPLEX #90 tabs simvastatin 20 mg tablet See Rx Instructions .Route 06/12/22 .COMPLEX #90 tabs trazodone 50 mg tablet See Rx Instructions .Route 06/12/22 .COMPLEX #90 tabs Allergies Allergy/AdvReac Type Severity Reaction Status Date / Time No Known Allergies Allergy Verified 05/29/22 13:02 PFSH PFS Medical History (Updated 06/15/22 @ 20:51 by Henrik Tadeo DNP) Atypical angina CAD (coronary artery disease) COPD (chronic obstructive pulmonary disease) Dyspnea Hyperlipidemia Hypertension PCI (pneumatosis cystoides intestinalis) Surgical History (Updated 06/15/22 @ 20:48 by Henrik Tadeo DNP) Hx of CABG Social History Smoking Status: Current every day smoker tobacco type: cigarettes packs per day: 1 alcohol intake: current substance use type: denies use current occupational status: other Travel in the last 8 weeks: None household members: other housing: house number of children: 1 caffeine: Yes ROS Obtained: Yes Systems reviewed as appropriate & no additional complaints except as documented Constitutional Constitutional: Denies fever(s) Cardiovascular Cardiovascular: Reports chest pain, Denies diaphoresis and Denies radiating jaw, neck or arm pain Respiratory Respiratory: Reports shortness of breath Gastrointestinal Gastrointestingal: Denies nausea or vomiting Physical Exam General General appearance: alert and in no apparent distress Head Head exam: atraumatic and normocephalic Eye Eye exam: Present normal appearance and EOMI ENT ENT exam: Present normal exam and mucous membranes moist Neck Neck exam: Present normal inspection and trachea midline Chest Chest inspect
--- NOTE | 2022-06-15 18:38 | PC.NURSE ---
Dr Worthy paged for patient.
--- NOTE | 2022-06-15 18:47 | PC.NURSE ---
STEMI paged overhead
--- NOTE | 2022-06-15 18:53 | XR_ITS ---
PROCEDURE INFORMATION: Exam: XR Chest Exam date and time: 06/15/2022 7:06 PM Age: 52 years old Clinical indication: Sternal or substernal pain; Additional info: Stemi-alert TECHNIQUE: Imaging protocol: Radiologic exam of the chest. Views: 1 view. COMPARISON: CR XR CHEST 2V 01/19/2022 11:24 AM FINDINGS: Tubes, catheters and devices: Telemetry lines, defibrillator pads and chest compression monitoring device projects over the patient. Lungs: No acute airspace consolidation. No appreciable pulmonary edema. Pleural spaces: No pleural effusion. No pneumothorax. Heart/Mediastinum: Cardiomediastinal silouhette is within normal limits. Bones/joints: No evidence of acute osseous abnormality. IMPRESSION: No evidence of acute cardiopulmonary disease.
--- NOTE | 2022-06-15 19:00 | PC.NURSE ---
verbal medication orders received from jennifer WHATLEY
--- NOTE | 2022-06-15 19:06 | PC.NURSE ---
Pt placed in a gown and bilateral groins trimmed. Pt placed on zoll pads and informed consent was obtained from pt for cath procedure.
--- NOTE | 2022-06-15 19:09 | PC.NURSE ---
laboratory director staff states they are ready for pt. warehouse supervisor 3rd shift taking pt to laboratory director at this time
[2022-06-15 19:36] LABS: Chloride 97 mmol/L (98-107); Potassium 3.5 mmoL/L (3.5-5.1); Sodium 139 mmol/L (136-145)
[2022-06-15 19:36] LABS: Coronavirus 19, PCR Not Detected (NotDetected); Influenza A, PCR Not Detected (NotDetected); Influenza B, PCR Not Detected (NotDetected)
[2022-06-15 19:37] LABS: Basophils # 0.1 K/mm3 (0-0.2); Basophils % 1.1 % (0.1-2.0); Eosinophils # 0.3 K/mm3 (0.0-0.4); Eosinophils % 3.9 % (0.1-12.0); Hematocrit 47.7 % (42.0-52.0); Hemoglobin 15.4 g/dL (14.1-18.0); Lymphocytes # 2.3 K/mm3 (0.7-4.5); Lymphocytes % 25.8 % (10-50); Mean Corpuscular HGB Conc 32.3 g/dL (31.8-35.4); Mean Corpuscular Hemoglobin 30.9 pg (27.0-31.2); Mean Corpuscular Volume 95.8 fl (80-94); Monocytes # 0.6 K/mm3 (0.1-1.0); Monocytes % 6.7 % (1.7-9.3); Neutrophils # 5.5 K/mm3 (1.8-7.8); Neutrophils % 62.4 % (37.0-80.0); Platelet Count 261 K/mm3 (142-424); Red Blood Count 4.98 M/mm3 (4.60-6.20); Red Cell Distribution Width 13.8 % (11.5-17.5); White Blood Count 8.9 K/mm3 (4.8-10.8)
[2022-06-15 19:39] LABS: Anion Gap 13.5 mEq/L (5-15); Blood Urea Nitrogen 10 mg/dl (9-20); Carbon Dioxide 32 mmol/L (22.0-30.0); Creatinine Clearance Estimated 106 mL/min (50-200); Estimated Glomerular Filt Rate 101 ml/min (>60); GFR (African American) 122 ML/MIN (>60); Glucose 81 mg/dl (74-100)
[2022-06-15 19:54] LABS: Troponin I < 0.01 ng/ml (0.00-0.034)
--- NOTE | 2022-06-15 19:55 | SUR.OPER ---
Report given Magdalena weinstein on 2nd floor
--- NOTE | 2022-06-15 20:03 | PC.NURSE ---
pt arrived to floor via stretcher at this time
--- NOTE | 2022-06-15 20:22 | SUR.PHASEII ---
Dr toledo stated to not hold plavix and NPO after midnight for possible placement of AICD tomorrow.
--- NOTE | 2022-06-15 20:43 | EXP.HP ---
History of Present Illness *Admission Date: 06/15/22 *Reason for visit:: Chest Pain, STEMI *History of present illness: Mr. Coles is a 52-year-old male with a past medical history that is positive for CAD, sp CABG and PCI x 9, HTN, Hyperlipidemia, Anxiety Disorder and Chronic Tobacco Abuse. He presents to [facility] today, 06/15/2022 due to acute onset of chest pain that occurred approximately 40 minutes prior to arrival associated with left sided chest pain, fatigue and shortness of air. He reports that he took nitro sublingual x 3 with no improvement of the pain. He called 911 and was brought into the ER for evaluation. In the ER on EKG there was noted to be elevation in leads V1 and V2. Troponin was noted to be within normal limits. ER Physician spoke with the Sheet Music Salesperson who recommended evaluation in the label printer. A STEMI alert was called. Per records sites were noted to be patent a radial approach was taken. There is currently a concern for profound bradycardia and possible Junctional Rhymn versus 3rd degree heart block. The patient is currently being monitored overnight on telemetry with plans to evaluate for PPM/AICD placement in the morning. Last echo showed an EF of 25-30% per review. [facility] Medical History (Updated 06/15/22 @ 20:51 by Henrik Tadeo DNP) Atypical angina CAD (coronary artery disease) COPD (chronic obstructive pulmonary disease) Dyspnea Hyperlipidemia Hypertension PCI (pneumatosis cystoides intestinalis) Surgical History (Updated 06/15/22 @ 20:48 by Henrik Tadeo DNP) Hx of CABG Social History Smoking Status: Current every day smoker tobacco type: cigarettes packs per day: 1 alcohol intake: current substance use type: denies use current occupational status: other Travel in the last 8 weeks: None household members: other housing: house number of children: 1 caffeine: Yes Review of Systems Review of Systems Review of systems:: pertinent systems reviewed and negative unless documented below Constitutional Constitutional: Reports lethargy Eyes Eyes: Reports system reviewed and no additional complaints, except as documented ENT Ears, Nose, Mouth, and Throat: Reports system reviewed and no additional complaints, except as documented *Cardiovascular Cardiovascular: Reports chest pain, Reports dyspnea on exertion and Reports slow heart rate *Respiratory Respiratory: Reports dyspnea on exertion *Gastrointestinal Gastrointestinal: Reports system reviewed and no additional complaints, except as documented *Genitourinary Genitourinary: Reports system reviewed and no additional complaints, except as documented *Musculoskeletal Musculoskeletal: Reports system reviewed and no additional complaints, except as documented Integumentary/Breasts Skin/Breast: Reports system reviewed and no additional complaints, except as documented *Neurologic Neurologic: Reports system reviewed and no additional complaints, except as documented Psychiatric Psychiatric: Reports system reviewed and no additional complaints, except as documented Endocrine Endocrine: Reports system reviewed and no additional complaints, except as documented Hematologic/Lymphatic Hematologic/Lymphatic: Reports system reviewed and no additional complaints, except as documented Allergic/Immunologic Allergic/Immunologic: Reports system reviewed and no additional complaints, except as documented Meds Home Medications and Allergies Home Medications Medication Instructions Recorded Confirmed Type aspirin 81 mg tablet,delayed 81 mg PO DAILY [facility] #90 12/09/21 05/29/22 Rx release tabs diclofenac sodium 1 % topical gel 2 g topical QID Pain #100 grams 12/09/21 05/29/22 Rx ranolazine 500 mg tablet,extended 500 mg PO BID #60 tabs 01/19/22 05/29/22 Rx release,12 hr (Ranexa) alprazolam 1 mg tablet See Rx Instructions .Route 05/29/22 05/29/22 Rx .COMP
[2022-06-15 22:26] LABS: INR 1.14 (0.9-1.1); Prothrombin Time 12.2 seconds (10.1-12.5)
[2022-06-15 22:37] LABS: Troponin I 0.02 ng/ml (0.00-0.034)
[2022-06-16] VITALS: BP 115/55; PULSE 50; PULSE 56; RESP 18; TEMP 36.5; O2SAT 97
--- NOTE | 2022-06-16 00:40 | PC.NURSE ---
THIS RN WAS WALKING UP THE HALLWAY AND WALKED INTO PT'S ROOM AND PT ADMITTED TO TAKING ONE PUFF OF A CIGARETTE. PT'S CIARETTES AND LITER LOCKED UP AT THIS TIME.
[2022-06-16 01:00] VITALS: BP 133/42; PULSE 57; RESP 16; TEMP 36.4; O2SAT 96
--- NOTE | 2022-06-16 01:26 | PC.NURSE ---
RADIAL BAND REMOVED AT 0100. NO BLEEDING AT RADIAL CATH SITE. 2X2 AND TEGADERM IN PLACE.
[2022-06-16 01:37] LABS: Troponin I 0.03 ng/ml (0.00-0.034)
[2022-06-16 02:00] VITALS: BP 100/54; PULSE 56; RESP 16; TEMP 36.7; O2SAT 98
[2022-06-16 03:00] VITALS: BP 96/43; PULSE 46; RESP 16; TEMP 36.4; O2SAT 96
[2022-06-16 04:00] VITALS: PULSE 40
--- NOTE | 2022-06-16 04:31 | PC.NURSE ---
NO ACUTE CHANGES SINCE PREVIOUS ASSESSMENT. LUNG SOUNDS ARE CLEAR. REMAINS ON ROOM AIR. RADIAL CATH SITE REMAINS CLEAN AND DRY. 2X2 AND TEG[address]M IN PLACE. PT HAS C/O CHEST PAIN THIS SHIFT. PT STAES IT IS BETTER THAN WHEN HE GOT HERE BUT NO MEDICATION HE HAS GOTTEN TONIGHT HAS HELPED. REMAINS SINUS MAGDALENA WITH PROLONGED QT ON TELE. VSS.
[2022-06-16 05:00] VITALS: BMI 24.8
[2022-06-16 07:07] LABS: Chloride 100 mmol/L (98-107); Sodium 139 mmol/L (136-145)
[2022-06-16 07:08] LABS: Potassium 3.6 mmoL/L (3.5-5.1)
[2022-06-16 07:10] LABS: Blood Urea Nitrogen 12 mg/dl (9-20); Creatinine Clearance Estimated 85 mL/min (50-200); Estimated Glomerular Filt Rate 88 ml/min (>60); GFR (African American) 107 ML/MIN (>60)
[2022-06-16 07:11] LABS: Anion Gap 10.6 mEq/L (5-15); Basophils # 0.1 K/mm3 (0-0.2); Basophils % 1.3 % (0.1-2.0); Calcium 8.6 mg/dl (8.4-10.2); Carbon Dioxide 32 mmol/L (22.0-30.0); Eosinophils # 0.2 K/mm3 (0.0-0.4); Glucose 97 mg/dl (74-100); Hematocrit 42.6 % (42.0-52.0); Hemoglobin 13.9 g/dL (14.1-18.0); Lymphocytes # 1.5 K/mm3 (0.7-4.5); Lymphocytes % 34.4 % (10-50); Mean Corpuscular HGB Conc 32.5 g/dL (31.8-35.4); Mean Corpuscular Hemoglobin 30.5 pg (27.0-31.2); Mean Corpuscular Volume 93.8 fl (80-94); Monocytes # 0.3 K/mm3 (0.1-1.0); Monocytes % 6.3 % (1.7-9.3); Neutrophils # 2.3 K/mm3 (1.8-7.8); Neutrophils % 52.9 % (37.0-80.0); Platelet Count 208 K/mm3 (142-424); Red Blood Count 4.55 M/mm3 (4.60-6.20); Red Cell Distribution Width 13.8 % (11.5-17.5); White Blood Count 4.3 K/mm3 (4.8-10.8)
[2022-06-16 08:00] VITALS: BP 102/42; PULSE 50; PULSE 56; RESP 16; TEMP 36.9; O2SAT 95
--- NOTE | 2022-06-16 08:58 | CA_ITS ---
APPROVED REPORT EXAM: Comprehensive 2D, Doppler, and color-flow Echocardiogram Can Handler: Cecilia Amato CRT Ht: 5 ft 3 in Wt: 140lbs BSA: 1.66 BP: 140/80 mmHg Indications: CABG X2, 9 stents, cp, sob, stemi, htn, hld, smoker ef 25-30% on cath 06/15/22 2D Dimensions LVOT 1.66 cm (M/F) 1.5-2.5 LA Volume 20.60 mL LA Volume Index 12.10 mL/m2 (M/F) 16-34 M-Mode Dimensions RVDd 2.96 cm (0.9-2.6) LA Diam 2.42 cm (1.9-4.0) LVDd 5.32 cm (3.5-5.7) Ao Diam 3.60 cm (2.0-3.7) LVDs 4.01 cm (3.5-5.7) IVSd 0.70 cm (0.6-1.1) PWd 0.82 cm (0.6-1.1) EF (Teich) 48.40% FS 24.60% EDV (Teich) 136.50 mL TAPSE 1.41 (<1.7) ESV (Teich) 70.40 mL LV Diastology E Decel Time 187.00 (160-240 msec) E/A Ratio 1.83 MED E' 7.30 (< 7 cm/sec) MED A' 6.20 cm/s E'/MED E' Ratio 12.30 (>14) LAT E' 10.50 (<10 cm/sec) LAT A' 6.80 cm/s E/LAT E' Ratio 8.55 (>14) Aortic Valve AO Peak GR. 5.00 mmHg Mitral Valve MV A Velocity 49.00 (40-130 cm/s) E/A Ratio 1.83 MV Decel. Time 187.00 (160-240 ms) Pulmonary Valve PV Peak Velocity 149.00 (50-150 cm/s) Tricuspid Valve TR P. Velocity 215.00 cm/s RAP Estimate 10.00 mmHg RVSP 28.50 mmHg Left Ventricle Left atrium is mildly enlarged, left ventricle is normal size there is no concentric left ventricular hypertrophy, estimated ejection fraction 50% there is mild distal septum and apical wall hypokinesis. Diastolic parameters are inconclusive. Right Ventricle Right atrium and right ventricle are mildly enlarged with normal contractility. Aortic Valve Aortic valve is minimally thickened and calcified without aortic stenosis or aortic insufficiency. Mitral Valve Mitral valve grossly normal, there is mild mitral regurgitation. Tricuspid Valve Tricuspid valve grossly normal, there is mild tricuspid regurgitation, tricuspid regurgitation jet velocity is inadequate for calculation of the right ventricular systolic pressure. Pulmonic Valve Pulmonic valve is poorly visualized. Great Vessels Aortic root is normal size. Inferior vena cava is poorly visualized. Pericardium No significant pericardial effusion noted. Conclusion 1. Mild biatrial enlargement, normal left ventricular size, estimated ejection fraction 50% with segmental wall motion abnormality described above, diastolic parameters are inconclusive. 2. Mildly enlarged right ventricle with normal contractility. 3. Mild mitral and tricuspid regurgitation. 4. No significant pericardial effusion noted. 5. Inferior vena cava is poorly visualized. Electronically signed by : Moise Arreguin MD 06/16/2022 12:38:37
--- NOTE | 2022-06-16 10:01 | HMH.PHAINT1 ---
Pharmacy Intervention Comments: home medication list verified using outpatient list
--- NOTE | 2022-06-16 10:11 | PC.NURSE ---
courtesy tech singh: Pt is sitting up in bed with no requested voiced at this time.
--- NOTE | 2022-06-16 12:39 | EXP.CARD.CON ---
History of Present Illness History of Present Illness Consult date: 06/16/22 Requesting physician: Dany Dowell Consult reason: chest pain Chief complaint: chest pain History of present illness: This is a 52-year-old gentleman who presented to the emergency department with complaints of chest pain. The patient states that he had chest pain for approximately 40 minutes prior to arriving to the hospital. This was a left-sided pain and severe. It was associated with fatigue and shortness of breath. The patient states that he took 3 sublingual nitroglycerin with no improvement in the pain. He called 911 and was brought to the emergency department for evaluation. The patient does have a history of coronary artery disease status post coronary artery bypass grafting and multiple stent placement as well as hypertension, hyperlipidemia and tobacco use as well as anxiety. When the patient got to the emergency department he was found to have ST elevation on EKG with a positive troponin. The patient was taken to directly to the cardiac catheterization laboratory. The patient underwent left cardiac catheterization with no percutaneous intervention. The patient was bradycardic and there was some concern for third-degree heart block versus a junctional rhythm. Patient was being considered for an AICD placement due to LV dysfunction noted on the LV gram. However echocardiogram this morning shows an ejection fraction of 45% preliminarily. No AICD is indicated. The patient is asymptomatic with bradycardia and has had a persistent short AR interval. No permanent pacemaker placement at this time per Dr. Worthy. This morning he denies any chest pain or pressure. He denies any shortness of breath or edema. He denies any fever, chills, nausea, vomiting, diarrhea, PND or orthopnea. [facility] Medical History Atypical angina CAD (coronary artery disease) COPD (chronic obstructive pulmonary disease) Dyspnea History of gastroesophageal reflux (GERD) History of seizure Hyperlipidemia Hypertension PCI (pneumatosis cystoides intestinalis) Surgical History Hx of CABG Family History (Updated 06/15/22 @ 22:51 by Magdalena Stokes RN) Other Family history of acute heart failure Family history of hyperlipidemia Family history of hypertension Family history of myocardial infarction Social History (Updated 06/15/22 @ 22:51 by Magdalena Stokes RN) Smoking Status: Current every day smoker tobacco type: cigarettes packs per day: 1 alcohol intake: current substance use type: denies use current occupational status: employed Travel in the last 8 weeks: None household members: other housing: house number of children: 1 caffeine: Yes Review of Systems Review of Systems Review of systems:: pertinent systems reviewed and negative unless documented below Constitutional Constitutional: Reports system reviewed and no additional complaints, except as documented Eyes Eyes: Reports system reviewed and no additional complaints, except as documented ENT Ears, Nose, Mouth, and Throat: Reports system reviewed and no additional complaints, except as documented *Cardiovascular Cardiovascular: Reports system reviewed and no additional complaints, except as documented *Respiratory Respiratory: Reports system reviewed and no additional complaints, except as documented *Gastrointestinal Gastrointestinal: Reports system reviewed and no additional complaints, except as documented *Genitourinary Genitourinary: Reports system reviewed and no additional complaints, except as documented *Musculoskeletal Musculoskeletal: Reports system reviewed and no additional complaints, except as documented Integumentary/Breasts Skin/Breast: Reports system reviewed and no additional complaints, except as documented *Neurologic Neurologic: Reports system reviewed and no addit
--- NOTE | 2022-06-16 14:48 | HMH.PHAINT1 ---
Pharmacy Intervention Comments: DISCHARGE MEDICATION COUNSELING PROVIDED. DISCUSSED STOPPING LISINOPRIL/HCTZ AND CHANGING TO PLAIN LISINOPRIL. WATCH FOR DIZZINESS/LIGHTHEADEDNESS, COUGH. ADD JARDIANCE 10 MG TAB, TAKE DAILY WITH FOOD. MAY DROP BLOOD SUGAR BUT IS APPROVED FOR HEART DISEASE. INCREASED RISK OF GENTIAL YEAST INFECTIONS. PATIENT VERBALIZED NO QUESTIONS AT THIS TIME.
--- NOTE | 2022-06-16 16:30 | EXP.DC.SUM ---
General Admission date:: 06/15/22 Discharge date: 06/16/22 HPI HPI HPI: Mr. Coles is a 52-year-old male with a past medical history that is positive for CAD, sp CABG and PCI x 9, HTN, Hyperlipidemia, Anxiety Disorder and Chronic Tobacco Abuse. He presents to [facility] today, 06/15/2022 due to acute onset of chest pain that occurred approximately 40 minutes prior to arrival associated with left sided chest pain, fatigue and shortness of air. He reports that he took nitro sublingual x 3 with no improvement of the pain. He called 911 and was brought into the ER for evaluation. In the ER on EKG there was noted to be elevation in leads V1 and V2. Troponin was noted to be within normal limits. ER Physician spoke with the Seed Production Field Supervisor who recommended evaluation in the recyclable materials collector. A STEMI alert was called. Per records sites were noted to be patent a radial approach was taken. There is currently a concern for profound bradycardia and possible Junctional Rhymn versus 3rd degree heart block. The patient is currently being monitored overnight on telemetry with plans to evaluate for PPM/AICD placement in the morning. Last echo showed an EF of 25-30% per review. Hospital Course Hospital Course Hospital Course: The patient was admitted to the medical floor with telemetry monitoring after his left heart cath with no identified intervention provided. His heart rate remained bradycardic and his ECG identified short NV. His echocardiogram identified an ejection fraction of 45%. Cardiology recommended ongoing conservative follow-up with no AICD indicated. Lifestyle changes were encouraged and education provided on tobacco cessation. The patient identified no further chest pain and reported improvement. He inquired about discharge home to follow-up with his PCP and cardiology team. Exam Data for Last 24 hours Vital signs and Labs for Last 24 Hours: Temp Pulse Resp BP Pulse Ox 98.4 F 56 L 16 102/42 L 95 06/16/22 08:00 06/16/22 08:00 06/16/22 08:00 06/16/22 08:00 06/16/22 08:00 Laboratory Results - last 24 hr 06/15/22 18:28: WBC 8.9, RBC 4.98, Hgb 15.4, Hct 47.7, MCV 95.8 H, MCH 30.9, MCHC 32.3, RDW 13.8, Plt Count 261, MPV 9.0, Neut % (Auto) 62.4, Lymph % (Auto) 25.8, Wy[place] % (Auto) 6.7, Eos % (Auto) 3.9, Baso % (Auto) 1.1, Neut # (Auto) 5.5, Lymph # (Auto) 2.3, Wythe # (Auto) 0.6, Eos # (Auto) 0.3, Baso # (Auto) 0.1 06/15/22 18:28: Sodium 139, Potassium 3.5, Chloride 97 L, Carbon Dioxide 32 H, Anion Gap 13.5, BUN 10, Creatinine 0.80, Estimated Creat Clear 106, Estimated GFR 101, Est GFR ( Amer) 122, Glucose 81, Calcium 9.0, Troponin I < 0.01 06/15/22 18:50: SARS-CoV-2 (PCR) Not detected, Influenza A Untype (PCR) Not detected, Influenza Type B (PCR) Not detected 06/15/22 22:05: PT 12.2, INR 1.14 H 06/15/22 22:05: Troponin I 0.02 06/16/22 00:40: Troponin I 0.03 06/16/22 06:26: WBC 4.3 L D, RBC 4.55 L, Hgb 13.9 L, Hct 42.6, MCV 93.8, MCH 30.5, MCHC 32.5, RDW 13.8, Plt Count 208, MPV 9.0, Neut % (Auto) 52.9, Lymph % (Auto) 34.4, Wy[place] % (Auto) 6.3, Eos % (Auto) 5.0, Baso % (Auto) 1.3, Neut # (Auto) 2.3, Lymph # (Auto) 1.5, Wythe # (Auto) 0.3, Eos # (Auto) 0.2, Baso # (Auto) 0.1 06/16/22 06:26: Sodium 139, Potassium 3.6, Chloride 100, Carbon Dioxide 32 H, Anion Gap 10.6, BUN 12, Creatinine 0.90, Estimated Creat Clear 85, Estimated GFR 88, Est GFR ( Amer) 107, Glucose 97, Calcium 8.6 I & O for Last 24 hours: Intake & Output 06/13/22 06/14/22 06/15/22 06/16/22 23:59 23:59 23:59 23:59 Weight 64.07 kg 63.588 kg Constitutional Constitutional: no acute distress and average body habitus *Routine HEENT Exam Head: Present normocephalic and atraumatic ENT: Present mucous membranes moist *Routine Neck Exam Neck: Present supple, full ROM and normal carotid upstroke; Absent JVD, carotid bruit or lymphadenopathy *Routine Respiratory Exam Respiratory: Present CTA bilaterally, normal respiratory effort, able to speak i
--- NOTE | 2022-06-23 13:31 | CARE MANAGER ---
Attempted to contact patient related to hospital discharge. No VM option. SRAVAN Medina
== END 2022-06-16 14:54 | disposition home or self-care (01) | DRG 281 ==
LOC: ER 18:59 → CATHLAB 19:14 → 2ND 19:23
PROVIDERS: Admitting Provider Family Medicine; Emergency Provider Emergency Medicine; PCP Emergency Medicine; Referring Provider Internal Medicine; Visit Provider Family Medicine
PROC: 4A023N7 Measurement of Cardiac Sampling and Pressure, Left Heart, Percutaneous Approach (ICD-10-PCS; principal; 2022-06-15 19:05)
DX: I21.3 ST elevation (STEMI) myocardial infarction of unspecified site (principal); I50.20 Unspecified systolic (congestive) heart failure; I25.10 Atherosclerotic heart disease of native coronary artery without angina pectoris; I11.0 Hypertensive heart disease with heart failure; F17.210 Nicotine dependence, cigarettes, uncomplicated; R00.1 Bradycardia, unspecified; Z95.1 Presence of aortocoronary bypass graft; Z95.5 Presence of coronary angioplasty implant and graft; J44.9 Chronic obstructive pulmonary disease, unspecified; I25.118 Atherosclerotic heart disease of native coronary artery with other forms of angina pectoris; F41.9 Anxiety disorder, unspecified; E78.2 Mixed hyperlipidemia; Z71.6 Tobacco abuse counseling
CPT/HCPCS: 36415; 71045; 80048; 84484; 85025; 85610; 93005; 93306; 93458; 99152; 99291; C1725; C1769; C9803; J1644; Q9967; U0003; U0005

== ENCOUNTER → 2022-07-28 18:29 | Outpatient (CLI) | payer OTHER, SELFPAY ==
[2022-07-28 18:17] LABS: Amphetamine/Metha Screen,Urine Negative ng/ml (<1000)
[2022-07-28 18:18] LABS: Barbiturates Screen,Urine Negative ng/ml (<200)
[2022-07-28 18:20] LABS: Benzodiazepines Screen,Urine Positive ng/ml (<200)
[2022-07-28 18:21] LABS: Cannabinoid Screen,Urine Positive ng/ml (<50); Cocaine Screen,Urine Negative ng/ml (<300)
[2022-07-28 18:22] LABS: Methadone Screen,Urine Negative ng/ml (<300); Opiate Screen,Urine Positive ng/ml (<300)
[2022-07-28 18:23] LABS: Phencyclidine Screen,Urine Negative ng/ml (<25)
== END ==
PROVIDERS: PCP Emergency Medicine; Visit Provider Emergency Medicine
DX: Z79.899 Other long term (current) drug therapy (principal)
CPT/HCPCS: 80305

== ENCOUNTER → 2022-09-25 11:30 | Outpatient (CLI) | payer OTHER, SELFPAY ==
[2022-09-25 16:25] LABS: Barbiturates Screen,Urine Negative ng/ml (<200); Benzodiazepines Screen,Urine Positive ng/ml (<200)
[2022-09-25 16:26] LABS: Cannabinoid Screen,Urine Negative ng/ml (<50)
[2022-09-25 16:27] LABS: Cocaine Screen,Urine Negative ng/ml (<300)
[2022-09-25 16:28] LABS: Methadone Screen,Urine Negative ng/ml (<300)
[2022-09-25 16:29] LABS: Opiate Screen,Urine Positive ng/ml (<300)
[2022-09-25 16:30] LABS: Phencyclidine Screen,Urine Negative ng/ml (<25)
[2022-09-27 18:48] LABS: Amphetamine/Metha Screen,Urine Negative ng/ml (<1000)
== END ==
PROVIDERS: PCP Emergency Medicine; Visit Provider Emergency Medicine
DX: Z79.899 Other long term (current) drug therapy (principal)
CPT/HCPCS: 80305

== ENCOUNTER → 2022-11-21 10:48 | Outpatient (CLI) | payer OTHER, SELFPAY ==
[2022-11-21 13:56] LABS: Amphetamine/Metha Screen,Urine Negative ng/ml (<1000)
[2022-11-21 13:57] LABS: Barbiturates Screen,Urine Negative ng/ml (<200); Benzodiazepines Screen,Urine Positive ng/ml (<200)
[2022-11-21 13:58] LABS: Cannabinoid Screen,Urine Negative ng/ml (<50); Cocaine Screen,Urine Negative ng/ml (<300)
[2022-11-21 13:59] LABS: Methadone Screen,Urine Negative ng/ml (<300)
[2022-11-21 14:00] LABS: Opiate Screen,Urine Positive ng/ml (<300)
[2022-11-21 14:01] LABS: Phencyclidine Screen,Urine Negative ng/ml (<25)
== END ==
PROVIDERS: PCP Emergency Medicine; Visit Provider Emergency Medicine
DX: Z79.899 Other long term (current) drug therapy (principal)
CPT/HCPCS: 80305

== ENCOUNTER → 2023-01-16 13:30 | Outpatient (CLI) | payer OTHER, SELFPAY ==
[2023-01-16 18:53] LABS: Amphetamine/Metha Screen,Urine Negative ng/ml (<1000)
[2023-01-16 18:54] LABS: Barbiturates Screen,Urine Negative ng/ml (<200)
[2023-01-16 18:55] LABS: Benzodiazepines Screen,Urine Positive ng/ml (<200)
[2023-01-16 18:56] LABS: Cannabinoid Screen,Urine Positive ng/ml (<50); Opiate Screen,Urine Positive ng/ml (<300)
[2023-01-16 18:57] LABS: Cocaine Screen,Urine Negative ng/ml (<300)
[2023-01-16 18:58] LABS: Methadone Screen,Urine Negative ng/ml (<300); Phencyclidine Screen,Urine Negative ng/ml (<25)
== END ==
PROVIDERS: PCP Emergency Medicine; Visit Provider Emergency Medicine
DX: Z79.899 Other long term (current) drug therapy (principal)
CPT/HCPCS: 80305

== ENCOUNTER → 2023-03-14 23:31 | Outpatient (CLI) | payer OTHER, SELFPAY ==
[2023-03-14 20:53] LABS: Amphetamine/Metha Screen,Urine Negative ng/ml (<1000)
[2023-03-14 20:54] LABS: Barbiturates Screen,Urine Negative ng/ml (<200); Benzodiazepines Screen,Urine Positive ng/ml (<200)
[2023-03-14 20:55] LABS: Cannabinoid Screen,Urine Negative ng/ml (<50); Cocaine Screen,Urine Negative ng/ml (<300)
[2023-03-14 20:56] LABS: Methadone Screen,Urine Negative ng/ml (<300)
[2023-03-14 20:57] LABS: Opiate Screen,Urine Positive ng/ml (<300)
[2023-03-14 20:59] LABS: Phencyclidine Screen,Urine Negative ng/ml (<25)
== END ==
PROVIDERS: PCP Emergency Medicine; Visit Provider Emergency Medicine
DX: J44.9 Chronic obstructive pulmonary disease, unspecified (principal)
CPT/HCPCS: 80305

== ENCOUNTER → 2023-07-31 08:12 | Outpatient (CLI) | payer OTHER, SELFPAY ==
[2023-07-31 21:21] LABS: Amphetamine/Metha Screen,Urine Negative ng/ml (<1000)
[2023-07-31 21:22] LABS: Barbiturates Screen,Urine Negative ng/ml (<200)
[2023-07-31 21:23] LABS: Benzodiazepines Screen,Urine Positive ng/ml (<200); Cocaine Screen,Urine Negative ng/ml (<300)
[2023-07-31 21:24] LABS: Cannabinoid Screen,Urine Negative ng/ml (<50)
[2023-07-31 21:25] LABS: Methadone Screen,Urine Negative ng/ml (<300); Phencyclidine Screen,Urine Negative ng/ml (<25)
[2023-07-31 21:26] LABS: Opiate Screen,Urine Positive ng/ml (<300)
== END ==
PROVIDERS: PCP Internal Medicine; Visit Provider Internal Medicine
DX: Z79.899 Other long term (current) drug therapy (principal)
CPT/HCPCS: 80305

== ENCOUNTER 2023-08-31 11:37 | Outpatient (CLI) | payer OTHER, SELFPAY ==
[2023-08-31 12:15] LABS: Benzodiazepines Screen,Urine Positive ng/ml (<200)
[2023-08-31 12:16] LABS: Amphetamine/Metha Screen,Urine Negative ng/ml (<1000); Barbiturates Screen,Urine Negative ng/ml (<200)
[2023-08-31 12:17] LABS: Cannabinoid Screen,Urine Negative ng/ml (<50)
[2023-08-31 12:18] LABS: Cocaine Screen,Urine Negative ng/ml (<300); Methadone Screen,Urine Negative ng/ml (<300)
[2023-08-31 12:19] LABS: Opiate Screen,Urine Negative ng/ml (<300); Phencyclidine Screen,Urine Negative ng/ml (<25)
[2023-09-07 11:19] LABS: Opiates Negative ng/mL (Cutoff=100)
[2023-09-08 08:35] LABS: Gabapentin,Urine Negative (.)
== END 2023-08-31 23:59 ==
LOC: LAB.DROPOF 11:38
PROVIDERS: PCP Nurse Practitioner Family; Visit Provider Nurse Practitioner Family
DX: Z79.899 Other long term (current) drug therapy (principal)
CPT/HCPCS: 80307; 80361; G0480

== ENCOUNTER 2023-09-03 08:32 | Outpatient (CLI) | payer OTHER, SELFPAY | END 2023-09-03 23:59 | LOC: LAB.DROPOF 09-05 08:32 | PROVIDERS: PCP Nurse Practitioner Family; Visit Provider Nurse Practitioner Family | DX: Z79.899 Other long term (current) drug therapy (principal) | CPT/HCPCS: 80307; 80361; G0480 ==